=== PATIENT | male | born 1985 | race Caucasian/White ===

== ENCOUNTER 2018-01-27 11:47 | Day surgery (SDC) | payer SELFPAY ==
[2018-01-27] MEDS ORDERED: Ondansetron PF 4 MG/2 ML Vial ONE ×2 (12:19→14:46)
[2018-01-27] MEDS ORDERED: Ketorolac Tromethamine 30 MG/ML VIAL ONE ×2 (12:23→14:46)
[2018-01-27] MEDS ORDERED: ISOVUE-370 76%-LOCM 1 ML ONE (12:33)
[2018-01-27 12:42] LABS: #Eosinphils 0.1 thou/uL (0.0-0.7); #Lymphocytes 1.1 thou/uL (1.20-3.40); #Monocytes 1.6 thou/uL (0.11-0.59); #Neutrophils 12.6 thou/uL (1.40-6.50); %Basophils 0.3 % (0.0-1.0); %Eosinophils 0.5 % (0.0-10.0); %Lymphocytes 6.9 % (21.0-51.0); %Monocytes 10.2 % (0.0-10.0); %Neutrophils 82.1 % (42.0-75.0); Hemoglobin 17.4 g/dL (14.0-18.0); Mean Corpuscular HGB CONC 32.6 g/dL (32.0-36.0); Mean Corpuscular Hemoglobin 29.7 pg (27.0-31.0); Mean Corpuscular Volume 91.2 fL (78.0-98.0); Mean Platelet Volume 7.8 fL (7.4-10.4); Platelet Count 282 thou/uL (130-400); RBC Distribution Width 11.6 % (11.5-14.5); Red Blood Cell (RBC) Count 5.85 mill/uL (4.70-6.10); White Blood Cell (WBC) Count 15.4 thou/uL (4.8-10.8)
[2018-01-27 13:26] LABS: ALT (SGPT) 45 U/L (8-55); AST (SGOT) 21 U/L (5-34); Albumin 4.8 g/dL (3.5-5.0); Alkaline Phosphatase 123 U/L (40-150); Anion Gap 14 mmol/L (10-20); BUN (Urea Nitrogen) 9 mg/dL (8.9-20.6); Bilirubin, Total 0.7 mg/dL (0.2-1.2); Calc. Creatinine Clearance 0 mL/min (70-130); Calcium 9.4 mg/dL (7.8-10.44); Carbon Dioxide 27 mmol/L (22-29); Chloride 101 mmol/L (98-107); Estimated GFR-MDRD 71; Globulin 3.3 g/dL (2.4-3.5); Glucose 94 mg/dL (70-105); Lipase 21 U/L (8-78); Potassium 3.8 mmol/L (3.5-5.1); Protein, Total 8.1 g/dL (6.0-8.3); Sodium 138 mmol/L (136-145)
--- NOTE | 2018-01-27 14:29 | HP ---
HISTORY OF PRESENT ILLNESS: Denny Camargo is a 32-year-old male [employer] sophomore student presents with 24-hour history of pain, initially periumbilical localizing right lower quadrant followed by lissa sea, increased pain with movement, anorexia. He presents to the emergency room, noted to have a whit e count of 15, hemoglobin 17. Basic metabolic profile normal. He went on to have a CAT scan of the abdomen and pelvis confirming appendicitis. ALLERGIES: None. TOBACCO: None. ALCOHOL: None. MEDICATIONS: None. PAST SURGICAL HISTORY: Left inguinal hernia repair, approach uncertain in [place] in recent past. PAST MEDICAL HISTORY: Noncontributory. REVIEW OF SYSTEMS: Ten point noncontributory. PHYSICAL EXAMINATION: VITAL SIGNS: Blood pressure 120/70, respiratory rate 16, heart rate 76. HEENT: Unremarkable. LUNGS: Clear to auscultation. CARDIAC: Regular rate and rhythm without murmur or gallop. ABDOMEN: Soft and tenderness in right lower quadrant, guarding, rebound. Positive Rovsing sign. EXTREMITIES: Unremarkable. ASSESSMENT AND PLAN: Appendicitis by history, exam and confirmed by imaging CAT scan. Recommend lap aroscopic video appendectomy. Risk of infection, bleeding, reoperation, open procedure discussed, co nsents obtained and questions answered. Plan outpatient surgery.
[2018-01-27] MEDS ORDERED: Piperacillin/Tazobactam 3.375 GM VIAL ONE (14:43)
[2018-01-27] MEDS ORDERED: Lidocaine 1% PF 5 ML VIAL ONE (14:46)
[2018-01-27] MEDS ORDERED: Glycopyrrolate 0.2 MG/ML 5 ML SYRINGE ONE (14:46)
[2018-01-27] MEDS ORDERED: PROPOFOL 200 MG/20 ML VIAL ONE (14:46)
[2018-01-27] MEDS ORDERED: Succinylcholine Chloride 20 MG/ML 10 ml SYRINGE FS ONE (14:46)
[2018-01-27] MEDS ORDERED: Metoclopramide HCl 10 MG/2 ML VIAL ONE (14:46)
[2018-01-27] MEDS ORDERED: Dexamethasone 20 MG/5 ML VIAL ONE (14:46)
[2018-01-27] MEDS ORDERED: PHENYLEPHRINE-NS 100 MCG/ML 10 ML SYRINGE ONE (14:46)
--- NOTE | 2018-01-27 14:46 | CT ---
ABDOMEN AND PELVIC CT SCAN WITH IV CONTRAST: Date: 01/27/18 HISTORY: 32-year-old male with history of lower abdominal pain, which began yesterday after lunch. FINDINGS: The lung bases are clear. Liver, gallbladder, pancreas, spleen, and adrenal glands are unremarkable. No renal calculi or obstruction. There is a markedly abnormally dilated appendix up to 1.2 cm. The re are some faintly calcified appendicoliths. Periappendiceal fat stranding. No evidence for abscess. No extraluminal gas. IMPRESSION: Evidence for acute appendicitis, without drainable abscess or extraluminal gas. Findings were discussed with Dr. Henriquez in the ER at 1342 hours. CODE CR. POS: [id number]
[2018-01-27 15:37] LABS: Bilirubin Negative (Negative); Blood, Urine Negative (Negative); Clarity CLEAR (Clear); Glucose, Urine (Dipstick) Negative (Negative); Leukocyte Negative (Negative); Nitrite Negative (Negative); Protein, Urine (Dipstick) Negative (Neg-Trace); Urobilinogen 0.2 mg/dL (0.2-1.0)
[2018-01-27] MEDS ORDERED: Bupivacaine/Epinephrine 0.25% 30 ML VIAL ONE (15:51)
[2018-01-27] MEDS ORDERED: Bupivacaine HCl 0.5%/Epinephrine 1:200,000/PF 30 ml Vial ONE (15:51)
[2018-01-27] MEDS ORDERED: Fentanyl 100 MCG/2 ML VIAL ONE (16:06)
[2018-01-27] MEDS ORDERED: Midazolam HCl 2 mg/2 ml Vial ONE (16:18)
[2018-01-27] MEDS ORDERED: traMADol HCl 50 MG TAB ONE (19:10)
--- NOTE | 2018-01-28 00:52 | OP ---
DATE OF PROCEDURE: 01/27/2018 PREOPERATIVE DIAGNOSIS: Acute appendicitis. POSTOPERATIVE DIAGNOSIS: Acute appendicitis. PROCEDURE PERFORMED: Laparoscopic video appendectomy. SURGEON: Terrance Masters M.D. ANESTHESIA: General. Local 0.5% Marcaine with epinephrine, 30 mL. FINDINGS: Acute appendicitis. PROCEDURE IN DETAIL: The patient was taken to the operating room where under general anesthesia, abd omen was clipped of hair, prepared with ChloraPrep, draped in routine fashion. Local anesthetic infi ltrated into the skin and subcutaneous tissue about each port site. Zhang catheter placed at the beg inning of the procedure, removed at the end. Infraumbilical incision made and pneumoperitoneum to 15 mmHg obtained with the Veress needle, replacing it with a 5 port and laparoscope inserted. Right jacob bcostal incision made and a 5 port placed. Suprapubic incision made and a 12 port placed under lapar oscopic visualization. Appendix noted to be acutely inflamed. Mesoappendix taken down with LigaSure . The stump of the appendix divided the cecal stump with Endo-JORDEN blue load stapler. Cecal staple s tump was hemostatic and secured as the appendix was removed in an Endobag. Good hemostasis ensured. Irrigant and pneumoperitoneum evacuated after suprapubic fascia approximated with 0 Vicryl GraNee ne edle. All skin incisions approximated with interrupted subdermal 4-0 Monocryl and DermaGlue applied. The patient tolerated the procedure well.
== END 2018-01-27 19:25 | disposition home or self-care (01) ==
LOC: ERS 11:47 → SDC 14:15 → ERS 14:15
PROVIDERS: ATTEND Specialist
PROC: 0DTJ4ZZ Resection of Appendix, Percutaneous Endoscopic Approach (ICD-10-PCS; principal; 2018-01-27)
DX: K35.80 Unspecified acute appendicitis (principal)
CPT/HCPCS: 74177; 80053; 81003; 83690; 85025; 88304; 96361; 96365; 96375; J0131; J0670; J1100; J1885; J2001; J2250; J2405; J2543; J2704; J2765; J3010